=== PATIENT | male | born 1980 | race Caucasian/White ===

== ENCOUNTER 2019-12-25 09:07 | Emergency (ER) | payer SELFPAY ==
[2019-12-25] MEDS ORDERED: ALUM & MAG HYDROX-SIMETHICONE 30 ML, LIDOCAINE VISCOUS 2% 15 ML PO ONE ×2 (09:23)
[2019-12-25] MEDS ORDERED: ONDANSETRON ODT 8 MG TAB SL ONE (09:23)
[2019-12-25] MEDS ORDERED: SUCRALFATE 1 GM/10 ML 1 GM UD PO ONE (09:23)
[2019-12-25] MEDS ORDERED: LIDOCAINE HCL 2% (MOUTH-THROAT) 15 ML UD ONE (09:38)
[2019-12-25] MEDS ORDERED: ALUM & MAG HYDROX-SIMETHICONE 30 ML UD ONE (09:39)
--- NOTE | 2019-12-25 10:07 | RAD ---
EXAM DESCRIPTION: Abdomen Series CLINICAL HISTORY: abd pain, nv COMPARISON: None. TECHNIQUE: Upright PA chest with supine and upright views of the abdomen FINDINGS: The lungs are clear without focal consolidation, pleural effusion, or significant pneumothorax. The heart is normal in size. Bilateral nipple ornaments. The bowel gas pattern is normal without evidence of obstruction. No free subdiaphragmatic air. No abnormal calcifications. No acute osseous abnormality. IMPRESSION: 1. No acute cardiopulmonary process. 2. Normal bowel gas pattern. Electronically signed by: Kj Ford DO 12/25/2019 10:06 AM CDT
--- NOTE | 2019-12-25 10:51 | ED.PDOC ---
History of Present Illness - General Chief Complaint: GI Problem Time Seen by Provider: 12/25/19 09:15 Source: patient Exam Limitations: no limitations - History of Present Illness Initial Comments: Patient is a 39-year-old male presents emergency room secondary to left upper quadrant discomfort for the last 24 hours associated with some nausea and one episode of vomiting. No blood and no bile. He does have a history of longstanding gastritis and gastroesophageal reflux disease. He has been off of his omeprazole. [facility] a fair amount of [facility] the day before. No fevers. No blood in the stool. No significant constipation. No diarrhea. No history of any recurrent gastrointestinal issues. He does still have his gallbladder and his appendix but pain is localized primarily to the left upper quadrant. No trauma. No history of any recent mono and no known blood disorders. No palpable mass. Discomfort is mildly worse with palpation. Timing/Duration: 24 hours Severity: mild Improving Factors: nothing Worsening Factors: eating Associated Symptoms: loss of appetite, nausea/vomiting Allergies/Adverse Reactions: Allergies NO KNOWN ALLERGY Allergy (Verified 12/25/19 09:34) Home Medications: Ambulatory Orders Famotidine 20 mg PO BID #30 tab 12/25/19 Ondansetron Odt [Zofran ODT] 4 mg PO Q8HR PRN #5 tab 12/25/19 Ropinirole Hydrochloride [Ropinirole HCl] 1 mg PO QAM PRN 12/25/19 Sucralfate Tab [Carafate Tab] 1 gm PO QID #60 tab 12/25/19 Review of Systems - Review of Systems Constitutional: States: malaise EENTM: States: no symptoms reported Respiratory: States: no symptoms reported Cardiology: States: no symptoms reported Gastrointestinal/Abdominal: States: abdominal pain, nausea, vomiting Genitourinary: States: no symptoms reported Musculoskeletal: States: no symptoms reported Skin: States: no symptoms reported Neurological: States: no symptoms reported Endocrine: States: no symptoms reported All other Systems: No Change from Baseline Physical Exam - Physical Exam General Appearance: Alert, Comfortable, No apparent distress Eye Exam: bilateral normal Ears, Nose, Throat: hearing grossly normal, normal ENT inspection Neck: full range of motion, supple Respiratory: lungs clear, normal breath sounds, no respiratory distress, no accessory muscle use Cardiovascular/Chest: normal peripheral pulses, regular rate, rhythm, no edema Peripheral Pulses: radial,right: 2+, radial,left: 2+ Gastrointestinal/Abdominal: soft, other - See history of present illness Rectal Exam: deferred Back Exam: no CVA tenderness, no vertebral tenderness Extremity: normal range of motion, non-tender, normal inspection, no pedal edema, normal capillary refill Neurologic: log clerk II-XII nml as tested, alert, normal mood/affect, oriented x 3 Skin Exam: normal color Comments: Vital Signs - 24 hr 12/25/19 09:25 Temperature 98.4 F Pulse Rate [ 66 left brachial] Respiratory 20 Rate Blood Pressure 134/80 [left brachial] O2 Sat by Pulse 98 Oximetry Progress - Progress Progress: 12/25/19 10:51 The patient is a 39-year-old male presented emergency room with what is most likely a mild acute gastritis. The patient is going to be treated with Carafate and Pepcid for the next 2 weeks. He needs to maintain a bland diet and avoid alcohol intake. He also needs to olive picker some liquid Maalox or Mylanta to take on an as-needed basis for any flare. He needs to avoid Pepto-Bismol as it can constipate him. Keep well-hydrated. He will be written for Zofran additionally for as needed use to control any nausea or vomiting. Obviously if symptoms are worsening rather than improving then additional work-up in the near future may be warranted. ER warnings are given. Keep routine follow-up with primary care doctor. connie galvin [phone] - Results/Orders Results/Orders: Acute abdominal series appears benign. Laboratory Tests 12/25/19 10:20 Urine Color Yellow Urine Appearance Clear Urine pH 8.5 H Ur Specific [place] 1.020 Urine Protein Trace Urine Glucose (UA) Negative Urine Ketones Negative Urine Blood Negative Urine Nitrite Negative Urine Bilirubin Negative Urine Urobilinogen 1.0 Ur Leukocyte Esterase Negative Urine RBC 0 Urine WBC 0 Ur Epithelial Cells 0 Amorphous Sediment 2+ Urine Bacteria 0 Urine Mucus Small Departure - Departure Clinical Impression: Acute gastritis Qualifiers: Gastritis type: unspecified gastritis Gastritis bleeding: without bleeding Qualified Code(s): K29.00 - Acute gastritis without bleeding Disposition: Discharge to Home or Self Care Condition: Fair Departure Forms: ED Discharge - Pt. Copy, Patient Portal Self Enrollment Instructions: DI for Gastritis Diet: bland diet Activity: increase activity as tolerated Prescriptions: Ondansetron Odt [Zofran ODT] 4 mg PO Q8HR PRN #5 tab PRN Reason: Nausea--Moderate Famotidine 20 mg PO BID #30 tab Sucralfate Tab [Carafate Tab] 1 gm PO QID #60 tab Home Medications: Ambulatory Orders Famotidine 20 mg PO BID #30 tab 12/25/19 Ondansetron Odt [Zofran ODT] 4 mg PO Q8HR PRN #5 tab 12/25/19 Ropinirole Hydrochloride [Ropinirole HCl] 1 mg PO QAM PRN 12/25/19 Sucralfate Tab [Carafate Tab] 1 gm PO QID #60 tab 12/25/19 Additional Instructions: The patient is a 39-year-old male presented emergency room with what is most likely a mild acute gastritis. The patient is going to be treated with Carafate and Pepcid for the next 2 weeks. He needs to maintain a bland diet and avoid alcohol intake. He also needs to olive picker some liquid Maalox or Mylanta to take on an as-needed basis for any flare. He needs to avoid Pepto-Bismol as it can constipate him. Keep well-hydrated. He will be written for Zofran additi onally for as needed use to control any nausea or vomiting. Obviously if symptoms are worsening rather than improving then additional work-up in the near future may be warranted. ER warnings are given. Keep routine follow-up with primary care doctor.
[2019-12-25 12:11] VITALS: BP 146/108; TEMP 98.3; O2SAT 97
== END 2019-12-25 11:34 | disposition home or self-care (01) ==
LOC: ER 09:07
DX: K29.00 Acute gastritis without bleeding (principal); R11.2 Nausea with vomiting, unspecified